=== PATIENT | male | born 1975 ===

== ENCOUNTER 2020-07-04 21:16 | Emergency (ER) | payer SELFPAY ==
--- NOTE | 2020-07-04 21:47 | RAD ---
SINGLE VIEW OF THE CHEST: 07/04/20 COMPARISON: Fever today with chills and cold. FINDINGS: Single view of the chest shows a normal sized cardiomediastinal silhouette. There is no evidence of c onsolidation, mass, or pleural effusion. Hardware is seen in the spine. IMPRESSION: No evidence of acute cardiopulmonary disease. POS: [facility]
[2020-07-04 22:41] LABS: Bacteria/HPF 4+ HPF (None Seen); Bilirubin Negative (Negative); Blood, Urine 2+ (Negative); Clarity Extra Turbid (Clear); Glucose, Urine (Dipstick) 150 mg/dL (Negative); Ketone, Urine Negative (Negative); Leukocyte 500 Leu/uL (Negative); Mucous/LPF 1+ LPF (<2+); Nitrite Negative (Negative); Protein, Urine (Dipstick) 70 mg/dL (Neg-Trace); Specific Gravity, Urine 1.028 (1.002-1.036); Squamous Epithelial 0-3 HPF (0-3); WBC/HPF Greater than 50 HPF (0-3)
[2020-07-04] MEDS ORDERED: cefTRIAXone\\ROCEPHIN 1 GM VIAL ONE (22:49)
[2020-07-05 05:35] LABS: SARS-CoV-2 MS2 Positive; SARS-CoV-2 N Gene Negative; SARS-CoV-2 S Gene Negative; SARS-CoV-2 by NAA Not Detected (NotDetected); SARS-CoV-2 orf1ab Negative
== END 2020-07-04 22:57 | disposition home or self-care (01) ==
LOC: ERS 21:16
DX: N39.0 Urinary tract infection, site not specified (principal); F17.210 Nicotine dependence, cigarettes, uncomplicated
CPT/HCPCS: 71045; 81003; 81015; 87086; 87635; 96372; J0696; U0003

== ENCOUNTER 2021-08-27 21:28 | Emergency (ER) | payer MEDICARE, OTHER ==
[2021-08-27] MEDS ORDERED: Ibuprofen 200 MG TAB ONE (22:18)
[2021-08-28 12:42] LABS: SARS-CoV-2 PCR by NAA DETECTED (NotDetected)
== END 2021-08-27 23:17 | disposition home or self-care (01) ==
LOC: ERS 21:28
DX: U07.1 COVID-19 (principal); F17.210 Nicotine dependence, cigarettes, uncomplicated
CPT/HCPCS: 99283; U0003; U0005